=== PATIENT | male | born 1965 | race Caucasian/White ===

== ENCOUNTER 2021-12-25 14:06 | Inpatient (IN) | payer MEDICARE, OTHER ==
[~2021-12-25] VITALS: Ht 188 cm; Wt 97.5 kg
[~2021-12-25 14:06] MED LIST: CEPHALEXIN500 MG PO
[2021-12-25 15:24] LABS: HEMOGLOBIN 9.5 gm/dl (14.0-17.5); RED BLOOD COUNT 3.65 M/UL (4.20-5.50)
[2021-12-25] MEDS ORDERED: BUPROPION XL150 MG PO (18:10)
[2021-12-25] MEDS ORDERED: PROZAC20 MG PO (18:11)
[2021-12-25] MEDS ORDERED: FERROUS GLUCON324 M1 PO (18:11)
[2021-12-25] MEDS ORDERED: GABAPENTIN100 MG PO (18:12)
[2021-12-25] MEDS ORDERED: METOPROLOL TART25 MG PO (18:12)
[2021-12-25] MEDS ORDERED: POTASSIUM CHLO10 MEQ PO (18:13)
[2021-12-25] MEDS ORDERED: CRESTOR20 MG PO (18:14)
[2021-12-25] MEDS ORDERED: SPIRONOLACTONE25 MG PO (18:14)
[2021-12-25] MEDS ORDERED: TADALAFIL10 MG PO (18:15)
[2021-12-25] MEDS ORDERED: FLOMAX 0.4 MG0.4 MG PO (18:16)
[2021-12-25] MEDS ORDERED: TORSEMIDE20 MG PO (18:17)
[2021-12-25] MEDS ORDERED: TRAZODONE HCL100 MG PO (18:17)
[2021-12-25] MEDS ORDERED: ZOLPIDEM TARTRAT5 MG PO (18:18)
[2021-12-25] MEDS ORDERED: TRULICITY0.75 MG/0. SQ (18:18)
[2021-12-25] MEDS ORDERED: MELATONIN10 M2 PO (18:19)
[2021-12-26 06:01] LABS: HEMOGLOBIN 7.9 gm/dl (14.0-17.5)
[2021-12-26 06:04] LABS: RED BLOOD COUNT 3.07 M/UL (4.20-5.50); WHITE BLOOD COUNT 6.6 K/UL (4.5-11.0)
[2021-12-27 07:10] LABS: HEMOGLOBIN 7.8 gm/dl (14.0-17.5); RED BLOOD COUNT 2.97 M/UL (4.20-5.50); WHITE BLOOD COUNT 6.8 K/UL (4.5-11.0)
[2021-12-28 04:54] LABS: HEMOGLOBIN 7.8 gm/dl (14.0-17.5); RED BLOOD COUNT 2.91 M/UL (4.20-5.50); WHITE BLOOD COUNT 6.9 K/UL (4.5-11.0)
[2021-12-28 16:11] LABS: RED BLOOD COUNT 2.99 M/UL (4.20-5.50)
[2021-12-29 05:59] LABS: HEMOGLOBIN 7.7 gm/dl (14.0-17.5); RED BLOOD COUNT 2.88 M/UL (4.20-5.50); WHITE BLOOD COUNT 6.8 K/UL (4.5-11.0)
--- NOTE | 2021-12-29 16:16 | NUR ---
contacted dr. westfall r/t consult and spoken to terrance his agricultural research engineer and that dressing was done daily with non adherent dressing, 4x4 and wrap with kerlix and tape to hold. no order for the above dressing, was informed by ms carlos that he will see patient after office hours. informed patient and family of dr. westfall's coming this evening
--- NOTE | 2021-12-29 23:29 | NUR ---
ROUTINE MEDICATION GIVEN LATE DUE TO PATIENT REQUEST.
[2021-12-30 06:11] LABS: HEMOGLOBIN 8.6 gm/dl (14.0-17.5); RED BLOOD COUNT 3.16 M/UL (4.20-5.50); WHITE BLOOD COUNT 7.2 K/UL (4.5-11.0)
--- NOTE | 2021-12-30 10:01 | NUR ---
Spoke to terrance and informed her of what the status of patient r/t discharge plan and boots per dr. jung request. terrance will relay message to dr. westfall
[2021-12-30] MEDS ORDERED: FERROUS GLUCON324 M1 PO (11:28)
[2021-12-30] MEDS ORDERED: CIPRO500 MG PO (11:28)
[2021-12-30] MEDS ORDERED: ZYVOX600 MG PO (11:28)
== END 2021-12-30 14:44 | disposition home or self-care (01) | DRG 565 ==
LOC: ER1 14:06 → CDU 16:13 → M/S 16:13
PROVIDERS: Emergency Medicine; Internal Medicine; Internal Medicine Nephrology; ADMIT Internal Medicine
PROC: 30233N1 Transfusion of Nonautologous Red Blood Cells into Peripheral Vein, Percutaneous Approach (ICD-10-PCS; principal; 2021-12-27)
DX: T87.43 Infection of amputation stump, right lower extremity (principal); L03.115 Cellulitis of right lower limb; I13.0 Hypertensive heart and chronic kidney disease with heart failure and stage 1 through stage 4 chronic kidney disease, or unspecified chronic kidney disease; Z20.822 Contact with and (suspected) exposure to COVID-19; N18.4 Chronic kidney disease, stage 4 (severe); E87.1 Hypo-osmolality and hyponatremia; M86.8X7 Other osteomyelitis, ankle and foot; I50.9 Heart failure, unspecified; E11.65 Type 2 diabetes mellitus with hyperglycemia; E11.22 Type 2 diabetes mellitus with diabetic chronic kidney disease; D63.1 Anemia in chronic kidney disease; N40.0 Benign prostatic hyperplasia without lower urinary tract symptoms; Y83.8 Other surgical procedures as the cause of abnormal reaction of the patient, or of later complication, without mention of misadventure at the time of the procedure; G89.29 Other chronic pain; I45.81 Long QT syndrome; D50.9 Iron deficiency anemia, unspecified; I48.91 Unspecified atrial fibrillation; E11.621 Type 2 diabetes mellitus with foot ulcer; Z89.431 Acquired absence of right foot; Z79.01 Long term (current) use of anticoagulants; Z86.73 Personal history of transient ischemic attack (TIA), and cerebral infarction without residual deficits; Z90.49 Acquired absence of other specified parts of digestive tract; Z88.1 Allergy status to other antibiotic agents; Z88.8 Allergy status to other drugs, medicaments and biological substances; E11.69 Type 2 diabetes mellitus with other specified complication
CPT/HCPCS: 36415; 71045; 73630; 73718; 80053; 82550; 82570; 82728; 82962; 83036; 83540; 83550; 83605; 83735; 83880; 84100; 84156; 84439; 84443; 85018; 85025; 85027; 85652; 86140; 86850; 86900; 86901; 86920; 87040; 87070; 87205; 93005; 93925; 96374; 96375; 99285; J0692; J0878; J1644; J1756; J2185; J2270; J2405; J7030; J7040; J7050; P9016; P9047; U0002

== ENCOUNTER 2022-02-16 11:04 | Inpatient (IN) | payer MEDICARE, OTHER ==
[~2022-02-16] VITALS: Ht 188 cm; Wt 99.8 kg
[~2022-02-16 11:04] MED LIST changes: +BUPROPION XL150 MG PO; +CIPRO500 MG PO; +CRESTOR20 MG PO; +FERROUS GLUCON324 M1 PO; +FLOMAX 0.4 MG0.4 MG PO; +GABAPENTIN100 MG PO; +MELATONIN10 M2 PO; +METOPROLOL TART25 MG PO; +POTASSIUM CHLO10 MEQ PO; +PROZAC20 MG PO; +SPIRONOLACTONE25 MG PO; +TADALAFIL10 MG PO; +TORSEMIDE20 MG PO; +TRAZODONE HCL100 MG PO; +TRULICITY1.5 MG/0.5 SQ; +ZOLPIDEM TARTRAT5 MG PO; +ZYVOX600 MG PO
[2022-02-16 12:45] LABS: HEMOGLOBIN 10.1 gm/dl (14.0-17.5); RED BLOOD COUNT 3.91 M/UL (4.20-5.50); WHITE BLOOD COUNT 6.4 K/UL (4.5-11.0)
[2022-02-17 06:24] LABS: WHITE BLOOD COUNT 7.3 K/UL (4.5-11.0)
[2022-02-17 06:33] LABS: HEMOGLOBIN 7.2 gm/dl (14.0-17.5); RED BLOOD COUNT 2.82 M/UL (4.20-5.50)
--- NOTE | 2022-02-17 14:16 | NUR ---
Telemetry notified RN of patient running Aflutter starting at 1357. Dr. Lee on floor at time of call so I had her look at the rythm and she agreed it looked to b johnnie. Dr. Sevilla notified of situation. Nicholas Benito also notified.
--- NOTE | 2022-02-17 14:21 | NUR ---
Dr. Saenz notified of patient running alfutter on telemetry and that Dr. Sevilla was notified.
--- NOTE | 2022-02-17 15:53 | NUR ---
Notified Dr. June of condition of patients wound and wound dressing.
--- NOTE | 2022-02-17 22:42 | NUR ---
patient refusing IV fluids
[2022-02-18 01:21] LABS: HEMOGLOBIN 7.4 gm/dl (14.0-17.5); RED BLOOD COUNT 2.87 M/UL (4.20-5.50); WHITE BLOOD COUNT 6.4 K/UL (4.5-11.0)
[2022-02-19 02:01] LABS: HEMOGLOBIN 7.9 gm/dl (14.0-17.5); RED BLOOD COUNT 3.08 M/UL (4.20-5.50); WHITE BLOOD COUNT 6.5 K/UL (4.5-11.0)
[2022-02-20 00:18] LABS: URINE CREATININE 34.9 mg/dL
[2022-02-20 07:14] LABS: HEMOGLOBIN 7.2 gm/dl (14.0-17.5); RED BLOOD COUNT 2.79 M/UL (4.20-5.50); WHITE BLOOD COUNT 5.5 K/UL (4.5-11.0)
[2022-02-20] MEDS ORDERED: LEVOFLOXACIN250 MG PO (11:16)
[2022-02-20] MEDS ORDERED: DOXYCYCLINE HY100 M2 PO (11:16)
[2022-02-21 06:21] LABS: HEMOGLOBIN 8.2 gm/dl (14.0-17.5); WHITE BLOOD COUNT 5.9 K/UL (4.5-11.0)
[2022-02-21 06:25] LABS: RED BLOOD COUNT 3.15 M/UL (4.20-5.50)
--- NOTE | 2022-02-21 13:30 | NUR ---
patient refused home health
--- NOTE | 2022-02-21 13:31 | NUR ---
patient independent of wound care and stated he was the one doing it. erica gonzalez of his wound care
--- NOTE | 2022-02-21 13:33 | NUR ---
during discharge teachings p[ stated he will take care of his own appt.
== END 2022-02-21 13:30 | disposition home health service (06) | DRG 638 ==
LOC: ER1 11:04 → MED SURG 4 14:18 → CDU 14:18 → MED SURG 4 21:51
PROVIDERS: Emergency Medicine; Physician Assistant; ADMIT Internal Medicine
PROC: B24BZZZ Ultrasonography of Heart with Aorta (ICD-10-PCS; 2022-02-18)
PROC: 30233N1 Transfusion of Nonautologous Red Blood Cells into Peripheral Vein, Percutaneous Approach (ICD-10-PCS; principal; 2022-02-20)
DX: E11.69 Type 2 diabetes mellitus with other specified complication (principal); I13.2 Hypertensive heart and chronic kidney disease with heart failure and with stage 5 chronic kidney disease, or end stage renal disease; M86.671 Other chronic osteomyelitis, right ankle and foot; L03.115 Cellulitis of right lower limb; N18.6 End stage renal disease; D63.1 Anemia in chronic kidney disease; I50.9 Heart failure, unspecified; R80.9 Proteinuria, unspecified; N17.9 Acute kidney failure, unspecified; E11.22 Type 2 diabetes mellitus with diabetic chronic kidney disease; E78.5 Hyperlipidemia, unspecified; I48.0 Paroxysmal atrial fibrillation; N40.0 Benign prostatic hyperplasia without lower urinary tract symptoms; R00.2 Palpitations; Z87.442 Personal history of urinary calculi; Z90.49 Acquired absence of other specified parts of digestive tract; Z86.73 Personal history of transient ischemic attack (TIA), and cerebral infarction without residual deficits; Z88.8 Allergy status to other drugs, medicaments and biological substances; Z88.1 Allergy status to other antibiotic agents; Z99.2 Dependence on renal dialysis; Z89.422 Acquired absence of other left toe(s); Z79.01 Long term (current) use of anticoagulants; Z80.0 Family history of malignant neoplasm of digestive organs; Z98.890 Other specified postprocedural states
CPT/HCPCS: ECHO; 36415; 71045; 73630; 80048; 80053; 81001; 82570; 82575; 82962; 83540; 83550; 83605; 83735; 83880; 84439; 84443; 85018; 85025; 85027; 85652; 86140; 86850; 86900; 86901; 86920; 87040; 87070; 87077; 87186; 87205; 93005; 93306; 96365; 96375; 96376; 99285; G0378; J1650; J1756; J1956; J2020; J2185; J2270; J2405; P9016